=== PATIENT | female | born 1995 | race Caucasian/White ===

== ENCOUNTER 2021-10-10 15:47 | Inpatient (IN) | payer BC ==
[~2021-10-10] VITALS: Ht 162.6 cm; Wt 69.4 kg
[2021-10-10] MEDS ORDERED: SEROQUEL300 M1 PO (15:56)
[2021-10-10] MEDS ORDERED: VENLAFAXINE HY150 MG PO (15:56)
[2021-10-10] MEDS ORDERED: NEURONTIN600 M1 PO (15:57)
[2021-10-10] MEDS ORDERED: LIPITOR 40MG TA40 MG PO (15:57)
[2021-10-10] MEDS ORDERED: LAMOTRIGINE200 MG PO (15:57)
[2021-10-10] MEDS ORDERED: NALTREXONE HYDR50 MG PO (15:58)
[2021-10-10] MEDS ORDERED: AMLODIPINE BESYL5 MG PO (15:58)
[2021-10-10] MEDS ORDERED: TOPROL XL 25MG25 MG PO (15:58)
[2021-10-10] MEDS ORDERED: FENOFIBRATE160 MG PO (15:59)
[2021-10-10 16:33] LABS: BASO # 0.04 K/mm3 (0.02-0.10); EOS # 0.14 K/mm3 (0.04-0.40); EOS % 2.3 % (1.0-5.0); HEMATOCRIT 42.3 % (37.0-47.0); HEMOGLOBIN 14.3 g/dL (12.5-16.0); LYMPH# 1.54 K/mm3 (1.50-4.00); MEAN CELL VOLUME 92 fl (78-100); MEAN CORPUSCULAR HEMOGLOBIN 31 pg (27-31); MEAN CORPUSCULAR HGB CONC 34 g/dL (33-37); MEAN PLATELET VOLUME 8.8 fl (7.4-10.4); MONO # 0.47 K/mm3 (0.20-0.80); NEU # 3.84 K/mm3 (1.40-6.50); PLATELET COUNT 221 K/mm3 (130-400); RED CELL DISTRIBUTION WIDTH 11.7 % (11.5-14.5)
[2021-10-10 16:42] LABS: ALBUMIN 4.1 g/dL (3.5-5.0); POTASSIUM 3.8 mmol/L (3.5-5.1)
[2021-10-10 16:44] LABS: CALCIUM 9.3 mg/dL (8.3-10.5)
[2021-10-10 16:45] LABS: TOTAL PROTEIN 7.2 g/dL (6.4-8.3)
[2021-10-10 16:47] LABS: TOTAL BILIRUBIN 1.2 mg/dL (0.2-1.2)
[2021-10-10 18:00] VITALS: BP 143/101
[2021-10-10 22:02] VITALS: BP 125/80
[2021-10-11 02:11] VITALS: BP 135/89
[2021-10-11 05:45] VITALS: BP 123/84
[2021-10-11 06:31] LABS: URINE APPEARANCE CLEAR; URINE BILIRUBIN NEGATIVE (NEGATIVE); URINE BLOOD NEGATIVE (NEGATIVE); URINE COLOR AMBER; URINE KETONE NEGATIVE (NEGATIVE); URINE LEUKOCYTE ESTERASE NEGATIVE (NEGATIVE); URINE NITRATE NEGATIVE (NEGATIVE); URINE PROTEIN(semi-quant) NEGATIVE (NEGATIVE); URINE UROBILINOGEN NORMAL (NORMAL)
[2021-10-11 06:32] LABS: BASO # 0.02 K/mm3 (0.02-0.10); EOS # 0.21 K/mm3 (0.04-0.40); HEMOGLOBIN 12.2 g/dL (12.5-16.0); LYMPH# 2.38 K/mm3 (1.50-4.00); MEAN CELL VOLUME 95 fl (78-100); MEAN CORPUSCULAR HEMOGLOBIN 31 pg (27-31); MEAN CORPUSCULAR HGB CONC 33 g/dL (33-37); MEAN PLATELET VOLUME 9.1 fl (7.4-10.4); MONO # 0.42 K/mm3 (0.20-0.80); NEU # 2.27 K/mm3 (1.40-6.50); PLATELET COUNT 197 K/mm3 (130-400); RED BLOOD COUNT 3.89 M/mm3 (4.10-5.30); RED CELL DISTRIBUTION WIDTH 11.8 % (11.5-14.5); WHITE BLOOD COUNT 5.3 K/mm3 (4.8-10.8)
[2021-10-11 07:17] LABS: ALBUMIN 3.5 g/dL (3.5-5.0)
[2021-10-11 07:18] LABS: POTASSIUM 3.7 mmol/L (3.5-5.1)
[2021-10-11 07:19] LABS: CALCIUM 8.5 mg/dL (8.3-10.5)
[2021-10-11 09:42] VITALS: BP 139/98
[2021-10-11 13:10] VITALS: BP 158/114
[2021-10-11 17:59] VITALS: BP 163/113
[2021-10-11 21:40] VITALS: BP 169/119
[2021-10-12 06:11] VITALS: BP 136/94
[2021-10-12 09:25] VITALS: BP 157/111
[2021-10-12] MEDS ORDERED: PANTOPRAZOLE SO40 MG PO (09:39)
[2021-10-12] MEDS ORDERED: NORCO 325 MG-51 TA1 PO (09:42)
== END 2021-10-12 10:00 | disposition home or self-care (01) | DRG 440 ==
LOC: ED 15:47 → MED/SURG 17:52
PROVIDERS: Nurse Practitioner; ADMIT Nurse Practitioner
DX: K85.90 Acute pancreatitis without necrosis or infection, unspecified (principal); F31.9 Bipolar disorder, unspecified; F20.9 Schizophrenia, unspecified; I10 Essential (primary) hypertension; R74.01 Elevation of levels of liver transaminase levels
CPT/HCPCS: J1885; J2270; J2405; J7030